=== PATIENT | female | born 1965 ===

== ENCOUNTER → 2022-09-20 | Outpatient (CLI) | payer OTHER ==
[2022-09-20 09:43] LABS: BASO # 0.01 K/mm3 (0.02-0.10); EOS % 2.2 % (1.0-5.0); HEMATOCRIT 35.7 % (37.0-47.0); HEMOGLOBIN 11.1 g/dL (12.5-16.0); LYMPH# 0.89 K/mm3 (1.50-4.00); MEAN CELL VOLUME 76 fl (78-100); MEAN CORPUSCULAR HEMOGLOBIN 24 pg (27-31); MEAN CORPUSCULAR HGB CONC 31 g/dL (33-37); MEAN PLATELET VOLUME 9.1 fl (7.4-10.4); MONO # 0.33 K/mm3 (0.20-0.80); NEU # 3.19 K/mm3 (1.40-6.50); PLATELET COUNT 197 K/mm3 (130-400); RED BLOOD COUNT 4.73 M/mm3 (4.10-5.30); RED CELL DISTRIBUTION WIDTH 20.8 % (11.5-14.5); WHITE BLOOD COUNT 4.5 K/mm3 (4.8-10.8)
[2022-09-20 09:48] LABS: POTASSIUM 3.5 mmol/L (3.5-5.1)
[2022-09-20 09:49] LABS: ALBUMIN 4.2 g/dL (3.5-5.0)
[2022-09-20 09:50] LABS: CALCIUM 9.3 mg/dL (8.3-10.5)
[2022-09-20 09:51] LABS: TOTAL PROTEIN 6.9 g/dL (6.4-8.3)
[2022-09-20 09:53] LABS: TOTAL BILIRUBIN 0.3 mg/dL (0.2-1.2)
== END ==
LOC: MAMMO 09:02
PROVIDERS: Family Medicine
DX: Z12.31 Encounter for screening mammogram for malignant neoplasm of breast (principal); Z13.1 Encounter for screening for diabetes mellitus; Z13.220 Encounter for screening for lipoid disorders; Z01.419 Encounter for gynecological examination (general) (routine) without abnormal findings; M54.50 Low back pain, unspecified; J06.9 Acute upper respiratory infection, unspecified; L30.9 Dermatitis, unspecified; Q05.9 Spina bifida, unspecified; Z80.9 Family history of malignant neoplasm, unspecified

== ENCOUNTER → 2024-08-12 | Outpatient (CLI) | payer OTHER ==
[2024-08-12 10:34] LABS: HEMATOCRIT 41.3 % (37.0-47.0); MEAN PLATELET VOLUME 9.7 fl (7.4-10.4); RED BLOOD COUNT 4.98 M/mm3 (4.10-5.30); RED CELL DISTRIBUTION WIDTH 14.5 % (11.5-14.5); WHITE BLOOD COUNT 6.4 K/mm3 (4.8-10.8)
== END ==
LOC: LAB 10:16
PROVIDERS: Family Medicine
DX: K92.1 Melena (principal)

== ENCOUNTER → 2024-09-23 | Day surgery (SDC) | payer OTHER ==
[~2024-09-23] MED LIST: fentaNYL 100 MCG/2 ML VIAL ONE
== END | disposition home or self-care (01) ==
LOC: MSO 09:20
DX: Z12.11 Encounter for screening for malignant neoplasm of colon (principal); K51.40 Inflammatory polyps of colon without complications; K57.30 Diverticulosis of large intestine without perforation or abscess without bleeding
CPT/HCPCS: 00811; J2704; J3010; J7120